=== PATIENT | female | born 1995 | race American Indian/Alaskan Native ===

== ENCOUNTER 2019-08-12 14:41 | Emergency (ER) | payer MEDICAID ==
--- NOTE | 2019-08-12 14:57 | Emergency Department Report ---
Blank Doc - Documentation Documentation: 24-year-old female that presents with left sided abdominal pain. Stated is ab out 18 weeks pregant. denies any vaginal bleeding. This initial assessment/diagnostic orders/clinical plan/treatment(s) is/are subject to change based on patient's health status, clinical progression and re- assessment by fellow clinical providers in the ED. Further treatment and workup at subsequent clinical providers discretion. Patient/guardians urged not to elope from the ED as their condition may be serious if not clinically assessed and managed. Initial orders include: 1- Patient sent to [facility] for further evaluation and treatment 2 labs 3- US OB 4- UA
[2019-08-12 15:21] LABS: Basophils % (Auto) 0.2 % (0.0-1.8); Eosinophils % (Auto) 0.4 % (0.0-4.3); Hematocrit 34.6 % (30.3-42.9); Hemoglobin 11.4 gm/dl (10.1-14.3); Lymphocytes # (Auto) 2.1 K/mm3 (1.2-5.4); Lymphocytes % (Auto) 16.6 % (13.4-35.0); Mean Corpuscular HGB Conc 33 % (30-34); Mean Corpuscular Volume 83 fl (79-97); Monocytes # (Auto) 0.9 K/mm3 (0.0-0.8); Monocytes % (Auto) 6.9 % (0.0-7.3); Platelet Count 158 K/mm3 (140-440); Red Blood Count 4.17 M/mm3 (3.65-5.03); Red Cell Distribution Width 13.8 % (13.2-15.2)
[2019-08-12 15:40] LABS: Bacteria,Urine 1+ /HPF (Negative); Bilirubin,Urine NEG (Negative); Blood,Urine NEG (Negative); Color,Urine Yellow (Yellow); Mucus,Urine 1+ /HPF; Protein,Urine <15 mg/dL mg/dL (Negative); Urobilinogen,Urine < 2.0 mg/dL (<2.0)
[2019-08-12] MEDS ORDERED: ACETAMINOPHEN 325 MG TAB PO ONE (20:18)
[2019-08-12] MEDS ORDERED: ONDANSETRON 4 MG/2 ML INJ IV ONE (20:18)
[2019-08-12] MEDS ORDERED: NITROFURANTOIN MONOHYD/M-CRYST 100 MG CAP PO ONE (20:18)
--- NOTE | 2019-08-12 20:22 | Emergency Department Report ---
ED Female HPI - General Chief complaint: Abdominal Pain Stated complaint: 18WKS PREG/ABD PAIN/DIFFICULTY SLEEPING Time Seen by Provider: 08/12/19 14:55 Source: patient Mode of arrival: Ambulatory Limitations: No Limitations - History of Present Illness Initial comments: 24-year-old female with no significant past medical history presents to hospital complaining of left lower quadrant abdominal pain in . Patient estimates she is 18 weeks and has not received any care or imaging. She's been having left lower quadrant constant sharp pain for the last 2 days. Pain is rated 8/10 in intensity, worse with palpation and movement. Patient is having difficulty sleeping secondary to pain. She's had on average 2 episodes of vomiting with nausea for the past 2 days. She denies dysuria, fever, or vaginal bleeding. This is patient's second with history of one elective . She denies history of miscarriages or ectopic. - Related Data Previous Rx's Medication Instructions Recorded Last Taken Type Ondansetron [Zofran Odt] 4 mg PO Q8HR PRN #20 tab.rapdis 08/12/19 Unknown Rx Allergies Allergy/AdvReac Type Severity Reaction Status Date / Time No Known Allergies Allergy Verified 08/12/19 20:46 ED Review of Systems ROS: Stated complaint: 18WKS PREG/ABD PAIN/DIFFICULTY SLEEPING Other details as noted in HPI Comment: All other systems reviewed and negative ED Past Medical Hx - Past Medical History Previous Medical History?: No - Surgical History Past Surgical History?: No - Social History Smoking Status: Never Smoker Substance Use Type: None - Medications Home Medications: Home Medications Medication Instructions Recorded Confirmed Last Taken Type Ondansetron [Zofran Odt] 4 mg PO Q8HR PRN #20 tab.rapdis 08/12/19 Unknown Rx ED Physical Exam - General Limitations: No Limitations - Other Other exam information: Gen.: No acute distress Head: Atraumatic Eyes: Normal appearance ENT: Moist mucous membranes Neck: Normal appearance, no posterior midline tenderness, no meningismus Chest: Clear to auscultation bilaterally Cardiovascular: Regular rate and rhythm Abdomen: Normal appearance, abdomen uterus palpated below umbilicus, mild left lower quadrant tenderness, no rebound or guarding, normal bowel sounds Back: Normal appearance, nontender Extremity: Full range of motion, normal appearance Neuro: Alert, clear speech, no focal motor or sensory deficit Psychiatric: Appropriate Skin: No rash ED Course Vital Signs 08/12/19 08/12/19 08/12/19 14:49 20:45 21:28 Temperature 98.2 F 98.6 F Pulse Rate 108 H 81 Respiratory 20 20 16 Rate Blood Pressure 120/63 Blood Pressure 93/49 [Right] O2 Sat by Pulse 100 98 Oximetry - Consultations Consultation #1: 08/12/19 21:11 case d/w [facility] [employer]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, advises hydration, miscarriage precautions, and abd binder ED Medical Decision Making - Lab Data Result diagrams: 08/12/19 15:07 Lab Results 08/12/19 08/12/19 08/12/19 Range/Units 15:07 15:07 15:15 WBC 12.5 H (4.5-11.0) K/mm3 RBC 4.17 (3.65-5.03) M/mm3 Hgb 11.4 (10.1-14.3) gm/dl Hct 34.6 (30.3-42.9) % MCV 83 (79-97) fl MCH 27 L (28-32) pg MCHC 33 (30-34) % RDW 13.8 (13.2-15.2) % Plt Count 158 (140-440) K/mm3 Lymph % (Auto) 16.6 (13.4-35.0) % [place] % (Auto) 6.9 (0.0-7.3) % Eos % (Auto) 0.4 (0.0-4.3) % Baso % (Auto) 0.2 (0.0-1.8) % Lymph # 2.1 (1.2-5.4) K/mm3 [place]y # 0.9 H (0.0-0.8) K/mm3 Eos # 0.0 (0.0-0.4) K/mm3 Baso # 0.0 (0.0-0.1) K/mm3 Seg Neutrophils % 75.9 H (40.0-70.0) % Seg Neutrophils # 9.4 H (1.8-7.7) K/mm3 HCG, Quant 24226 H (0-4) mIU/mL Urine Color Yellow (Yellow) Urine Turbidity Cloudy (Clear) Urine pH 6.0 (5.0-7.0) Ur Specific [place] 1.021 (1.003-1.030) Urine Protein <15 mg/dl (Negative) mg/dL Urine Glucose (UA) Neg (Negative) mg/dL Urine Ketones Neg (Negative) mg/dL Urine Blood Neg (Negative) Urine Nitrite Neg (Negative) Urine Bilirubin Neg (Negative) Urine Urobilinogen < 2.0 (<2.0) mg/dL Ur Leukocyte Esterase Mod (Negative) Urine WBC (Auto) 34.0 H (0.0-6.0) /HPF Urine RBC (Auto) 8.0 (0.0-6.0) /HPF U Epithel Cells (Auto) 16.0 H (0-13.0) /HPF Urine Bacteria (Auto) 1+ (Negative) /HPF Urine Mucus 1+ /HPF - Radiology Data Radiology results: report reviewed US: 19 wks 3 days IUP no acute abnormality - Medical Decision Making pt tx with tylenol and zofran with improvement in sx marcobid given for uti but I suspect contaminated sample Discussed with [facility] Patient informed by the abdominal binder, drinking fluids, and follow-up - Differential Diagnosis UTI, round ligament syndrome, ectopic, renal colic Critical Care Time: No Critical care attestation.: If time is entered above; I have spent that time in minutes in the direct care of this critically ill patient, excluding procedure time. ED Disposition Clinical Impression: Round ligament pain, UTI (urinary tract infection), Nausea/vomiting in , 19 weeks gestation of Disposition: DC- TO HOME OR SELFCARE Is pt being admited?: No Does the pt Need Aspirin: No Condition: Stable Instructions: (ED), Urinary Tract Infection in Women (ED) Additional Instructions: Take Tylenol as needed for pain. Take the medication as prescribed. Follow-up with your doctor or with the doctor/clinic provided. Return if symptoms worsen as indicated by your discharge instructions. Purchase an abdominal binder as discussed to help with support of your uterus as your continues. Continue to drink plenty of fluids. Prescriptions: Ondansetron [Zofran Odt] 4 mg PO Q8HR PRN #20 tab.rapdis PRN Reason: Nausea And Vomiting Referrals: [facility] [Provider Group] - 2-3 Days Time of Disposition: 21:23
--- NOTE | 2019-08-12 20:42 | Ultrasound Report ---
ULTRASOUND OBSTETRIC Indication: pelvic pain Findings: Transabdominal and transvaginal imaging is performed. There is a single intrauterine . BPD = 4.6 cm = 19 weeks, 6 day(s). Head circumference = 16.7 cm = 19 weeks, 2 day(s). Abdominal circumference = 13.9 cm = 19 weeks, 2 day(s). Femur length = 3.1 cm = 19 weeks, 3 day(s). Overall estimated sonographic age = 19 weeks, 3 day(s). heart rate is 165 beats per minute. Estimated weight is 289 grams position is cephalic. Placenta is posterior and grade 0 . Amniotic fluid volume appears normal. stomach, kidneys, bladder, diaphragm, four-chamber view of the heart, three-vessel cord and cor d insertion are unremarkable. Impression: 1. Single living intrauterine with estimated sonographic age of 19 weeks, 3 day(s). 2. No sonographic abnormality identified. Signer Name: Michael Barahona MD Signed: 08/12/2019 8:38 PM Workstation Name: [id number]
[2019-08-12] MEDS ORDERED: ONDANSETRON 4 MG ODT TAB PO ONE (20:43)
[2019-08-12] MEDS ORDERED: ONDANSETRON 4 MG ODT TAB ONE (20:43)
[2019-08-12 21:30] VITALS: BP 93/49
== END 2019-08-12 21:55 | disposition home or self-care (01) ==
LOC: ED 14:41
DX: O23.42 Unspecified infection of urinary tract in pregnancy, second trimester (principal); O26.892 Other specified pregnancy related conditions, second trimester; R10.32 Left lower quadrant pain; Z79.899 Other long term (current) drug therapy; Z3A.19 19 weeks gestation of pregnancy
CPT/HCPCS: 36415; 76805; 81001; 84702; 85025; 87086; Q0162

== ENCOUNTER 2022-04-01 20:30 | Outpatient (CLI) | payer MEDICAID ==
[2022-04-01] MEDS ORDERED: LACTATED RINGERS 500 ML IV ONE (20:51)
[2022-04-01 20:53] VITALS: BP 109/59
[2022-04-01 21:46] LABS: Bacteria,Urine 1+ /HPF (Negative); Bilirubin,Urine NEG (Negative); Blood,Urine NEG (Negative); Color,Urine Yellow (Yellow); Mucus,Urine FEW /HPF; Protein,Urine <15 mg/dL mg/dL (Negative); Urobilinogen,Urine < 2.0 mg/dL (<2.0)
--- NOTE | 2022-04-01 22:03 | Event Note ---
Date: 04/01/22 Pt is a 27 y.o. @ 27 wks who receives care at [facility]. She present to triage tonight with c/o vaginal pressure when moving and spotting. States that the pressure has been ongoing and the spotting occurred two days ago. She is not spotting during this visit. She denies SROM, ctxs. Speculum exam revealed no active bleeding, cervix appeared closed. On digital exam cervix was closed/thick/high. Urinanlysis resulted as normal. Category monitor tracing throughout triage stay with no contractions noted. Findings explained to patient. Suggested a maternity belt. Pt to follow up with primary OB next week. Discharged home in good condition and ambulatory.
== END 2022-04-01 22:12 | disposition home or self-care (01) ==
LOC: TRG 20:30 → APU 20:31 → TRG 22:12
PROVIDERS: ATTEND Obstetrics & Gynecology
DX: O26.852 Spotting complicating pregnancy, second trimester (principal); Z3A.27 27 weeks gestation of pregnancy
CPT/HCPCS: 59025; 81001